=== PATIENT | female | born 2005 | race Hispanic/Latino ===

== ENCOUNTER 2024-01-18 12:14 | Emergency (ER) | payer OTHER ==
[~2024-01-18] VITALS: Ht 147.3 cm; Wt 58.8 kg
[2024-01-18 13:13] LABS: RSV AMPLIFICATION NEGATIVE (NEGATIVE)
[2024-01-18 13:36] VITALS: BP 110/62; TEMP 98.5; O2SAT 98
== END 2024-01-18 13:41 | disposition home or self-care (01) ==
LOC: M ED 12:14
DX: R51.9 Headache, unspecified (principal); Z20.822 Contact with and (suspected) exposure to COVID-19